=== PATIENT | male | born 1940 | race Caucasian/White ===

== ENCOUNTER 2016-11-21 11:31 | Emergency (ER) | payer MEDICARE, OTHER ==
--- NOTE | 2016-11-21 12:03 | Emergency Department Record ---
History of Present Illness - General Chief complaint: Pain Stated complaint: PAIN INSIDE LT LEG Time Seen by Provider: 11/21/16 11:53 Source: Patient Mode of Arrival: Ambulatory Limitations: No limitations - History of Present Illness Initial comments: The patient is here due to developing L groin pain 6 weeks ago. It started when he was pushing something heavy and since the pain has been intermittent. Now the pain seems to come on with certain movements and twisting. The patient denies any lower leg numbness, tingling or weakness. The patient and are concerned about the blood flow to the L leg. MD Complaint: Other Onset/Timin -: Week(s) Location: Left, Other History of Same: No Radiation: Distal Severity scale (1-10): 3 Quality: Other Consistency: Constant Improves with: Nothing Worsens with: Nothing Associated Symptoms: Denies other symptoms - Related Data Previous Rx's Medication Instructions Recorded Ibuprofen [Motrin 600Mg] 600 mg PO Q6H #20 tablet 10/12/15 Allergies Allergy/AdvReac Type Severity Reaction Status Date / Time No Known Drug Allergies Allergy Verified 11/21/16 11:40 Travel Screening - Travel/Exposure Within Last 30 Days Have you traveled within the last 30 days?: No Review of Systems Constitutional: Denies: Chills, Fever Eyes: Denies: Eye discharge ENT: Denies: Congestion Respiratory: Denies: Cough, Dyspnea Past Medical History - SOCIAL HISTORY Smoking Status: Never smoker Alcohol Use: None Drug Use: None - RESPIRATORY Hx Respiratory Disorders: No - CARDIOVASCULAR Hx Cardio Disorders: No - NEURO Hx Neuro Disorders: No - GI Hx GI Disorders: No - Hx Genitourinary Disorders: Yes Hx Prostate Problems: Yes - ENDOCRINE Hx Endocrine Disorders: No - MUSCULOSKELETAL Hx Musculoskeletal Disorders: No - PSYCH Hx Psych Problems: No - HEMATOLOGY/ONCOLOGY Hx Hematology/Oncology Disorders: Yes Hx Cancer: Yes (prostate) Comment:: prostate 4 years ago Family Medical History Any Significant Family History?: Yes Hx Diabetes: Mother Physical Exam - General General Appearance: Alert, Oriented x3, Cooperative, No acute distress - Respiratory Respiratory exam: Normal lung sounds bilaterally. negative: Respiratory distress - Cardiovascular Cardiovascular Exam: Regular rate, Normal rhythm, Normal heart sounds - GI/Abdominal GI/Abdominal exam: Soft, Normal bowel sounds. negative: Rebound, Rigid, Tenderness - Extremities Extremities exam: Normal inspection, Full ROM (There is no pain with ROM of the L hip.), Normal capillary refill, Other (The DP pulses are Trace bilaterally but the PT pulses are 3+ and equal bilaterally.). negative: Pedal edema, Tenderness (There is no tenderness to the L proximal medial thigh.) - Neurological Neurological exam: Alert, Normal gait. negative: Abnormal gait, Motor sensory deficit Course Vital Signs 11/21/16 11:35 Temperature 98.1 F Pulse Rate 81 Respiratory 20 Rate Blood Pressure 140/90 Pulse Ox 96 - Reevaluation(s) Reevaluation #1: The patient is up walking with no difficulty. I explained to him the xray does appear WNL's. He is to see his PCP this next week for recheck and to have the L leg doppler study ordered. 11/21/16 12:27 Medical Decision Making - Data Complexity MDM Data: X-Ray Ordered and/or Reviewed - Radiology Data Radiology results: Report reviewed (Pelvis: No acute bony abnormalities. 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 Please see your PCP next week for recheck and to order the Doppler test. Return to the ER for any increased pain, swelling, or fever. Forms: Patient Portal Access Time of Disposition: 12:29 Quality - Quality Measures Quality Measures: N/A - Blood Pressure Screening View Details: Yes Does Patient Have Any of the Following: No Blood Pressure Classification: Hypertensive Reading Systolic Measurement: 140 Diastolic Measurement: 90 Screening for High Blood Pressure: < Pre-Hypertensive BP, F/U Documented > [ [id number]] Pre-Hypertensive Follow-up Interventions: Referral to alternative/primary care provider.
--- NOTE | 2016-11-23 07:49 | RADIOLOGY REPORT ---
EXAM: PELVIS HISTORY: PATIENT HAS LEFT GROIN PAIN WITH POSSIBLE INJURY A FEW MONTHS AGO. TECHNIQUE: A single AP portable view of the pelvis was provided along with the CT scan of the abdomen and pelvis dated 04/29/11. FINDINGS: There is no radiographic evidence of a fracture or dislocation of the pelvis. Axial joint space loss is noted bilaterally, left greater than right. Mild subchondral sclerosis with marginal osteophytes are identified within the left hip. Degenerative changes of the lower lumbar spine are again noted. There is no radiographic evidence of an acute fracture or dislocation of the osseous structures of the pelvis. IMPRESSION: DEGENERATIVE CHANGES OF THE HIPS AND LUMBAR SPINE ARE NOTED. THERE IS NO RADIOGRAPHIC EVIDENCE OF AN ACUTE PROCESS INVOLVING THE VISUALIZED PELVIS. JOB NUMBER: [id number] [facility]
== END 2016-11-21 12:38 | disposition home or self-care (01) ==
LOC: ER 11:31
DX: R10.32 Left lower quadrant pain (principal)
CPT/HCPCS: 72170; 99283